=== PATIENT | female | born 1985 | race Asian ===

== ENCOUNTER → 2018-07-29 | Outpatient (CLI) | payer OTHER ==
[~2018-07-29] MED LIST: NOCURR
== END | disposition home or self-care (01) ==
LOC: RADPV 09:59
PROVIDERS: ATTEND Obstetrics & Gynecology
DX: Z34.82 Encounter for supervision of other normal pregnancy, second trimester (principal); Z3A.21 21 weeks gestation of pregnancy
CPT/HCPCS: 76805

== ENCOUNTER 2018-12-01 22:06 | Inpatient (IN) | payer OTHER ==
[~2018-12-01] VITALS: Ht 157.5 cm; Wt 84.4 kg
[2018-12-01] MEDS ORDERED: OXYTOCIN 30 UNITS/LACT RINGERS 500 ML IV ONE (23:25)
[2018-12-01] MEDS ORDERED: RINGERS SOLUTION,LACTATED 1,000 ML IV PRN (23:25)
[2018-12-01] MEDS ORDERED: AMPICILLIN SODIUM 2 GM/NS 100 ML IV ONE (23:30)
[2018-12-01] MEDS ORDERED: DINOPROSTONE 10 MG VAGINAL SUPPOSITORY VG ONE (23:30)
[2018-12-01] MEDS ORDERED: CITRIC ACID/SODIUM CITRATE 30 ML SOLUTION UDCUP PO PRN (23:30)
[2018-12-01] MEDS ORDERED: METOCLOPRAMIDE HCL 5 MG/ML 2 ML VIAL IVP PRN (23:30)
[2018-12-01 23:38] VITALS: BP 128/83
[2018-12-02 00:07] LABS: BASOPHILS % (AUTO) 0.4 % (0.0-2.0); EOSINOPHILS % (AUTO) 0.8 % (1.0-6.0); HEMATOCRIT 38.3 % (36-46); HEMOGLOBIN 12.9 g/dL (12.0-16.0); LYMPHOCYTES # (AUTO) 1.3 K/uL (1.0-4.8); LYMPHOCYTES % (AUTO) 22.9 % (22.0-44.0); MEAN CORPUSCULAR HEMOGLOBIN 31.1 pg (26.0-34.0); MEAN CORPUSCULAR HGB CONC 33.7 G/dL (31.0-37.0); MEAN CORPUSCULAR VOLUME 92 fL (80-100); MONOCYTES # (AUTO) 0.5 K/uL (0.1-1.0); MONOCYTES % (AUTO) 7.8 % (2.0-9.0); NEUTROPHILS # (AUTO) 3.9 K/uL (1.8-7.7); NEUTROPHILS % (AUTO) 68.1 % (40.0-70.0); PLATELET COUNT (AUTO)-OB 236 K/uL (150-450); RED BLOOD CELL COUNT(AUTO) 4.15 MIL/uL (4.00-5.20); RED CELL DISTRIBUTION WIDTH 14.6 % (11.5-14.5)
[2018-12-02] MEDS ORDERED: PREN1TAB80 PO (00:25)
[2018-12-02] MEDS: FentaNYL CITRATE-PF 100 MCG/2 ML VIAL IVP PRN ×8 (04:46→15:26)
[2018-12-02] MEDS: RINGERS SOLUTION,LACTATED 1,000 ML IV SCH ×3 (05:17→22:38)
[2018-12-02] MEDS ORDERED: -PHARMACY NOTE- MISC ONE (11:30)
[2018-12-02] MEDS ORDERED: MISOPROSTOL 50 MCG TABLET PO ONE (13:00)
[2018-12-02] MEDS ORDERED: OXYTOCIN 20 UNITS/LACT RINGERS 1,000 ML IV SCH (13:48)
[2018-12-02] MEDS ORDERED: MAGNESIUM HYDROXIDE SUSPENSION 30 ML UDCUP PO PRN (14:00)
[2018-12-02] MEDS ORDERED: SENNA/DOCUSATE SODIUM 8.6-50 MG TABLET PO PRN (14:00)
[2018-12-02] MEDS ORDERED: GLYCERIN/WITCH HAZEL LEAF 40 PADS JAR TP PRN (14:00)
[2018-12-02] MEDS ORDERED: IBUPROFEN 600 MG TABLET PO PRN (14:00)
[2018-12-02] MEDS ORDERED: LANOLIN 7 GM OINTMENT TP PRN (14:00)
[2018-12-02] MEDS ORDERED: BENZOCAINE 20%/MENTHOL 56 GM SPRAY CANISTER TP PRN (14:00)
[2018-12-02] MEDS ORDERED: ACETAMINOPHEN/CODEINE 300-30 MG TABLET PO PRN (14:00)
[2018-12-02] MEDS ORDERED: MEASLES/MUMPS/RUBELLA VACCINE, LIVE 0.5 ML/VIAL SQ ONE (14:00)
[2018-12-02] MEDS: AMPICILLIN SODIUM 1 GM/NS 50 ML IV SCH ×3 (16:00→23:48)
[2018-12-02] MEDS ORDERED: OXYTOCIN 30 UNITS/LACT RINGERS 500 ML IV PRN (17:19)
[2018-12-02] MEDS ORDERED: ROPIVACAINE HCL/PF 0.2% 100 ML ED PRN (21:11)
[2018-12-02] MEDS ORDERED: NALBUPHINE HCL 10 MG/ML VIAL IVP PRN (21:15)
[2018-12-02] MEDS ORDERED: DiphenhydrAMINE HCL 50 MG/ML VIAL IVP PRN (21:15)
[2018-12-02] MEDS ORDERED: ONDANSETRON HCL 4 MG/2 ML VIAL IVP PRN (21:15)
[2018-12-02] MEDS: OXYGEN THERAPY IH SCH ×2 (22:38→22:39)
[2018-12-02] MEDS ORDERED: MINERAL OIL 30 ML UDCUP VG ONE (23:45)
[2018-12-02] MEDS ORDERED: BUPIVACAINE HCL/PF 0.5% 10 ML VIAL ONE (23:56)
[2018-12-02] MEDS ORDERED: LIDOCAINE/PF 2% 5 ML VIAL ONE (23:56)
[2018-12-03] MEDS ORDERED: LIDOCAINE/PF 1% 30 ML VIAL ONE (01:26)
[2018-12-03] MEDS ORDERED: LIDOCAINE/PF 1% 30 ML VIAL INJ PRN (01:30)
[2018-12-03] MEDS ORDERED: LANOLIN 7 GM OINTMENT TP PRN (02:00)
[2018-12-03] MEDS ORDERED: MEASLES/MUMPS/RUBELLA VACCINE, LIVE 0.5 ML/VIAL SQ ONE (02:00)
[2018-12-03] MEDS ORDERED: ACETAMINOPHEN/CODEINE 300-30 MG TABLET PO PRN ×2 (02:00)
[2018-12-03] MEDS ORDERED: BENZOCAINE 20%/MENTHOL 56 GM SPRAY CANISTER TP PRN (02:00)
[2018-12-03] MEDS ORDERED: GLYCERIN/WITCH HAZEL LEAF 40 PADS JAR TP PRN (02:00)
[2018-12-03] MEDS: IBUPROFEN 600 MG TABLET PO PRN ×3 (02:15→20:56)
[2018-12-03] MEDS: MAGNESIUM HYDROXIDE SUSPENSION 30 ML UDCUP PO SCH ×2 (09:23→20:57)
[2018-12-03] MEDS ORDERED: IBUP-2071 PO (09:53)
[2018-12-03] MEDS ORDERED: DSS100 PO (09:54)
[2018-12-03] MEDS ORDERED: FERR-89 PO (09:55)
[2018-12-04] MEDS: MAGNESIUM HYDROXIDE SUSPENSION 30 ML UDCUP PO SCH (08:38)
[2018-12-04] MEDS ORDERED: IBUP-2071 PO (11:50)
[2018-12-04] MEDS ORDERED: DSS100 PO (11:51)
== END 2018-12-04 12:18 | disposition home or self-care (01) | DRG 807 ==
LOC: EEVIPCON → 4S 22:06 → EDSTATUS 12-20 23:07
PROVIDERS: ADMIT Obstetrics & Gynecology Gynecology; ATTEND Obstetrics & Gynecology Gynecology
PROC: 3E0R3BZ Introduction of Anesthetic Agent into Spinal Canal, Percutaneous Approach (ICD-10-PCS; 2018-12-01)
PROC: 00HU33Z Insertion of Infusion Device into Spinal Canal, Percutaneous Approach (ICD-10-PCS; 2018-12-01)
PROC: 10E0XZZ Delivery of Products of Conception, External Approach (ICD-10-PCS; principal; 2018-12-03)
PROC: 0KQM0ZZ Repair Perineum Muscle, Open Approach (ICD-10-PCS; 2018-12-03)
PROC: 10907ZC Drainage of Amniotic Fluid, Therapeutic from Products of Conception, Via Natural or Artificial Opening (ICD-10-PCS; 2018-12-03)
PROC: 3E0P7VZ Introduction of Hormone into Female Reproductive, Via Natural or Artificial Opening (ICD-10-PCS; 2018-12-03)
PROC: 3E033VJ Introduction of Other Hormone into Peripheral Vein, Percutaneous Approach (ICD-10-PCS; 2018-12-03)
DX: O99.824 Streptococcus B carrier state complicating childbirth (principal); Z37.0 Single live birth; O48.0 Post-term pregnancy; O70.1 Second degree perineal laceration during delivery; Z3A.40 40 weeks gestation of pregnancy
CPT/HCPCS: 86850; 86900; 86901; J0290; J2590; J3010; J3490; J7120

== ENCOUNTER 2019-11-11 16:14 | Emergency (ER) | payer OTHER ==
[~2019-11-11] VITALS: Ht 157.5 cm; Wt 72.7 kg
[~2019-11-11 16:14] MED LIST changes: +DSS100 PO; +IBUP-2071 PO; -NOCURR; +PREN1TAB80 PO
[2019-11-11 17:15] VITALS: BP 125/88
== END 2019-11-11 17:37 | disposition home or self-care (01) ==
LOC: EMS 16:19
DX: Z03.818 Encounter for observation for suspected exposure to other biological agents ruled out (principal); M79.10 Myalgia, unspecified site
CPT/HCPCS: 99283; U0003

== ENCOUNTER → 2021-03-15 | Outpatient (CLI) | payer OTHER | END | disposition home or self-care (01) | LOC: RADPV 08:08 | PROVIDERS: ATTEND Internal Medicine | DX: R76.11 Nonspecific reaction to tuberculin skin test without active tuberculosis (principal) | CPT/HCPCS: 71045 ==